=== PATIENT | male | born 1955 | race Two or more races ===

== ENCOUNTER 2017-02-01 20:36 | Emergency (ER) | payer BC ==
[~2017-02-01] VITALS: Ht 172.7 cm; Wt 79.4 kg
[2017-02-01 21:00] VITALS: BP 107/69
[2017-02-01 21:48] LABS: BASOPHILS % (AUTO) 1.1 % (0.0-2.0); EOSINOPHILS % (AUTO) 1.8 % (0.0-3.0); LYMPHOCYTES % (AUTO) 40.4 % (20.0-45.0); MEAN CORPUSCULAR HEMOGLOBIN 32.4 PG (27.0-31.0); MEAN CORPUSCULAR HGB CONC 34.8 G/DL (32.0-36.0); MEAN CORPUSCULAR VOLUME 93 FL (80-99); MEAN PLATELET VOLUME 9.2 FL (6.5-10.1); MONOCYTES % (AUTO) 7.6 % (1.0-10.0); PLATELET COUNT 184 K/UL (150-450); RED BLOOD COUNT 4.62 M/UL (4.70-6.10); RED CELL DISTRIBUTION WIDTH 11.2 % (11.6-14.8)
--- NOTE | 2017-02-01 21:54 | Emergency Room Report ---
History of Present Illness General Chief Complaint: Chest Pain Source: Patient Present Illness HPI 61YOM walk-in with episode of "shortness of breath" this morning. Was feeling anxious about work. Later this evening had some "discomfort" to upper left neck but notes has been "working out a lot at the gym." Non smoker, social ETOH. No drugs Took 2 ASA, felt better. Noted BP was 90/60 at time Came to ED Takes Losartan, took this morning No DM, HLD Father had heart attack at 68. Denies cough, fever/chills Feels well now Allergies: Coded Allergies: ACETAMINOPHEN (Verified Allergy, Unknown, 02/01/17) Pork (Verified Allergy, Unknown, 02/01/17) Patient History Past Medical History: HTN Past Surgical History: none Pertinent Family History: [place] Social History: Reports: alcohol use, Denies: drug use - s, smoking Immunizations: UTD Reviewed Nursing Documentation: PMH: Agreed, PSxH: Agreed Review of Systems All Other Systems: negative except mentioned in HPI Physical Exam Vital Signs Date Time Temp Pulse Resp B/P Pulse Ox O2 Delivery O2 Flow Rate FiO2 02/01/17 20:46 98.2 69 20 150/116 99 Room Air Sp02 EP Interpretation: reviewed, normal General Appearance: normal inspection, well appearing, no apparent distress, alert, GCS 15, non-toxic Head: normocephalic, atraumatic Eyes: bilateral eye EOMI, bilateral eye PERRL ENT: normal ENT inspection, hearing grossly normal, normal voice Neck: normal inspection, full range of motion, supple, no bony tend Respiratory: normal inspection, lungs clear, normal breath sounds, no respiratory distress, no retraction, no wheezing Cardiovascular #1: regular rate, rhythm, no edema Gastrointestinal: normal inspection, normal bowel sounds, non tender, soft, no guarding, no hernia Genitourinary: no CVA tenderness Musculoskeletal: normal inspection, back normal, normal range of motion, Manuela' s Sign negative Neurologic: normal inspection, alert, oriented x3, responsive, clinical advisor III-XII nml as tested, motor strength/tone normal, speech normal Psychiatric: normal inspection, judgement/insight normal, mood/affect normal Skin: normal inspection, normal color, no rash Lymphatic: normal inspection Medical Decision Making Diagnostic Impression: Primary Impression: Chest pain Qualified Codes: R07.89 - Other chest pain ER Course Neck pain/SOB - VSS. Afebrile - I disagree with shift mgr BP. - Currently 122/73 and has been stable without ED intervention - CXR: No PTX, CHF, PNA - ECG is NSR. No ischemia. - Labs: H&H stable. No leuk. Troponin 0. Advised PMD followup for HTN monitoring and Cardiology referral for outpatient stress testing DC home EKG Diagnostic Results Rate: normal Rhythm: NSR ST Segments: no acute changes ASA given to the pt in ED: No Rhythm Strip Diag. Results EP Interpretation: yes Rate: 68 Rhythm: NSR, other Chest X-Ray Diagnostic Results Chest X-Ray Diagnostic Results : Chest X-Ray Ordered: Yes # of Views/Limited/Complete: 1 View Indication: Chest Pain EP Interpretation: Yes Interpretation: no consolidation Impression: No acute disease Interpreting ER Provider: Electronically signed by Dr Murguia Last Vital Signs Date Time Temp Pulse Resp B/P Pulse Ox O2 Delivery O2 Flow Rate FiO2 02/01/17 20:46 98.2 69 20 150/116 99 Room Air Status: improved Disposition: HOME, SELF-CARE ANDIE HOWELL M.D. Feb 01, 2017 21:54
[2017-02-01 22:26] LABS: TROPONIN I < 0.30 ng/mL (<=0.30)
[2017-02-01 22:30] LABS: ALANINE AMINOTRANSFERASE 26 U/L (3-41); ALBUMIN/GLOBULIN RATIO 1.6 (1.0-2.7); ANION GAP 13 (5-15); ASPARTATE AMINO TRANSFERASE 34 U/L (5-40); CALCIUM 9.6 mg/dL (8.6-10.2); CARBON DIOXIDE 25 mEQ/L (20-30); CHLORIDE 103 mEQ/L (98-107); GLOMERULAR FILTRATION RATE > 60 mL/min (>60); HEMOLYSIS 6; SODIUM 141 mEQ/L (135-145); TOTAL PROTEIN 7.1 g/dL (6.6-8.7)
[2017-02-01 22:44] VITALS: BP 109/66
--- NOTE | 2017-02-04 08:04 | Diagnostic Imaging Report ---
Indication: SOB Technique: One view of the chest Comparison: none Findings: Lungs and pleural spaces are clear. Heart size is normal. Azygos lobe and fissure-normal anatomic variant-incidentally noted Impression: No acute process
--- NOTE | 2017-02-04 18:17 | Cardiology Report ---
APPROVED REPORT EKG Measurement Heart [id number] 160P56 [id number] Normal sinus rhythm with sinus arrhythmia Normal ECG
== END 2017-02-01 22:44 | disposition home or self-care (01) ==
LOC: EMR 21:17
DX: R07.89 Other chest pain (principal); M54.2 Cervicalgia; Z88.6 Allergy status to analgesic agent; I10 Essential (primary) hypertension; Z91.018 Allergy to other foods; Q33.1 Accessory lobe of lung
CPT/HCPCS: 36415; 71010; 80053; 82550; 82553; 83880; 84484; 85025; 93005; 99283

== ENCOUNTER 2019-01-25 07:29 | Emergency (ER) | payer BC ==
[~2019-01-25] VITALS: Ht 170.2 cm; Wt 82.6 kg
--- NOTE | 2019-01-25 07:34 | Emergency Room Report ---
History of Present Illness General Chief Complaint: To Be Triaged Present Illness HPI 63-year-old male history of hypertension, family history of [place] dad age 65 presents with chest pain tightness started at 5:30 AM, aggravated with exertion , alleviated with rest, no nausea no vomiting, he does endorse some shortness of breath, he did have jaw pain the day before and was cleared by his dentist. Patient denies any diaphoresis, no history of drug use, he does drink intermittently Allergies: Coded Allergies: ACETAMINOPHEN (Verified Allergy, Unknown, 02/01/17) Pork (Verified Allergy, Unknown, 02/01/17) Patient History Past Medical History: see triage record Social History: Reports: alcohol use Reviewed Nursing Documentation: PMH: Agreed; PSxH: Agreed Review of Systems Constitutional: Denies: chills, fever Eye: Denies: blurred vision, double vision ENT: Denies: throat pain, nasal discharge Respiratory: Reports: shortness of breath; Denies: cough Cardiovascular: Reports: chest pain, palpitations Gastrointestinal: Denies: abdominal pain, diarrhea, nausea, vomiting Genitourinary: Denies: dysuria, pain Musculoskeletal: Denies: back pain, muscle pain Skin: Denies: rash, lesions Neurological: Denies: headache, focal weakness Hematologic/Lymphatic: Denies: easy bleeding, easy bruising All Other Systems: negative except mentioned in HPI Physical Exam Sp02 EP Interpretation: reviewed, normal General Appearance: well appearing, no apparent distress, alert Head: normocephalic, atraumatic Eyes: bilateral eye PERRL, bilateral eye EOMI ENT: uvula midline, moist mucus membranes Neck: supple, thyroid normal, supple/symm/no masses Respiratory: lungs clear, no respiratory distress, no retraction, no accessory muscle use Cardiovascular #1: normal peripheral pulses, regular rate, rhythm, no edema, no gallop, no murmur Gastrointestinal: non tender, soft, no guarding, no rebound Musculoskeletal: normal inspection Neurologic: alert, oriented x3 Psychiatric: mood/affect normal Skin: no rash, warm/dry Medical Decision Making Diagnostic Impression: Primary Impression: Chest pain ER Course 63-year-old male presents with chest pain, concerning for ACS DDX: ACS, pulmonary embolism, pneumothorax, pneumonia. Given aspirin and nitroglycerin, with relief of pain The patient has requested to leave the ED against medical advice. The patient reason(s) for leaving include, but are not limited to, the following: works as a freelancer needs the money. I believe this patient is of sound mind and competent to refuse medical care. The patient is responding and asking questions appropriately. The patient is oriented to person, place and time. The patient is not psychotic, delusional, suicidal, homicidal or hallucinating. The patient demonstrates a normal mental capacity to make decisions regarding their healthcare. The patient is clinically sober and does not appear to be under the influence of any illicit drugs at this time. The patient has been advised of the risks, in layman terms, of leaving AMA which include, but are not limited to , coma, permanent disability, loss of current lifestyle, delay in diagnosis. Alternatives have been offered - the patient remains steadfast in their wish to leave. The patient has been advised that should they change their mind they are welcome to return to this hospital, or any other, at any time. The patient understands that in no way does an AMA discharge mean that I do not want them to have the best medical care available. To this end, I have provided appropriate prescriptions, referrals, and discharge instructions. The patient did sign AMA paperwork. The above discussion was witnessed by another member of staff. 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, he is aware of the risks of disability and worsening of his medical condition Patient is currently chest pain-free will provide a prescription for aspirin, patient signed AMA paperwork Laboratory Tests Test 01/25/19 07:50 White Blood Count 7.6 K/UL (4.8-10.8) Red Blood Count 4.78 M/UL (4.70-6.10) Hemoglobin 14.9 G/DL (14.2-18.0) Hematocrit 43.7 % (42.0-52.0) Mean Corpuscular Volume 91 FL (80-99) Mean Corpuscular Hemoglobin 31.1 PG (27.0-31.0) H Mean Corpuscular Hemoglobin Concent 34.0 G/DL (32.0-36.0) Red Cell Distribution Width 11.5 % (11.6-14.8) L Platelet Count 192 K/UL (150-450) Mean Platelet Volume 8.3 FL (6.5-10.1) Neutrophils (%) (Auto) 61.1 % (45.0-75.0) Lymphocytes (%) (Auto) 29.5 % (20.0-45.0) Monocytes (%) (Auto) 7.1 % (1.0-10.0) Eosinophils (%) (Auto) 1.5 % (0.0-3.0) Basophils (%) (Auto) 1.0 % (0.0-2.0) Prothrombin Time 9.6 SEC (9.30-11.50) Prothrombin Time INR 0.9 (0.9-1.1) PTT 27 SEC (23-33) Sodium Level 139 MMOL/L (136-145) Potassium Level 4.3 MMOL/L (3.5-5.1) Chloride Level 106 MMOL/L (98-107) Carbon Dioxide Level 27 MMOL/L (21-32) Anion Gap 6 mmol/L (5-15) Blood Urea Nitrogen 15 mg/dL (7-18) Creatinine 1.2 MG/DL (0.55-1.30) Estimate Glomerular Filtration Rate > 60 mL/min (>60) Glucose Level 124 MG/DL (74-106) H Calcium Level 9.3 MG/DL (8.5-10.1) Total Bilirubin 0.5 MG/DL (0.2-1.0) Aspartate Amino Transferase (AST) 28 U/L (15-37) Alanine Aminotransferase (ALT) 28 U/L (12-78) Alkaline Phosphatase 78 U/L (46-116) Total Creatine Kinase 77 U/L (26-308) Creatine Kinase MB 1.3 NG/ML (0.0-3.6) Creatine Kinase MB Relative Index 1.6 Troponin I 0.000 ng/mL (0.000-0.056) Total Protein 6.7 G/DL (6.4-8.2) Albumin 3.6 G/DL (3.4-5.0) Globulin 3.1 g/dL Albumin/Globulin Ratio 1.2 (1.0-2.7) Lipase 177 U/L (73-393) EKG Diagnostic Results EKG Time: 07:34 EP Interpretation: NSR, rate 74, QTc 419, no acute ST elevations, normal axis Rate: normal Rhythm: NSR ST Segments: no acute changes ASA given to the pt in ED: Yes Rhythm Strip Diag. Results Rhythm Strip Time: 07:43 EP Interpretation: yes Rate: 75 Rhythm: NSR, no PVC's, no ectopy Chest X-Ray Diagnostic Results Chest X-Ray Diagnostic Results : Chest X-Ray Ordered: Yes # of Views/Limited/Complete: 1 View Indication: Chest Pain EP Interpretation: Yes Interpretation: no consolidation, no effusion, no pneumothorax, no acute cardiopulmonary disease Impression: No acute disease Electronically Signed by: Yves Ramírez MD Disposition: AGAINST MEDICAL ADVICE Condition: Stable Scripts Aspirin* (ASPIR 81*) 81 Mg Tablet. 81 MG ORAL DAILY, #30 TAB Prov: Yves Ramírez M.D. 01/25/19 Referrals: [facility] Patient Instructions: Acute Coronary Syndrome, Nonspecific Chest Pain, Easy-to- Read Additional Instructions: The patient was provided with discharge instructions, notified to follow-up with a primary care doctor and or specialist in the next 24-48 hours, and to return to the ED if they have worsening of their symptoms. Please note that this report is being documented using Brain[employer] technology. This can lead to erroneous entry secondary to incorrect interpretation by the dictating instrument. Yves Ramírez M.D. Jan 25, 2019 07:34
[2019-01-25 07:38] VITALS: BP 157/84
[2019-01-25] MEDS ORDERED: LOSARTAN POTASS25 MG ORAL (07:38)
--- NOTE | 2019-01-25 07:38 | NUR ---
ED Nurse Note: Patient walked in to ER from home due to chest pain 02/14 which started by 0530 this morning. Patient aao x4 and ambulatory. skin clean and intact. calm and cooperative. pt is in gown and on monitor worker. no s/s of acute distress noted at this time.
--- NOTE | 2019-01-25 07:40 | NUR ---
ED Nurse Note: chest x-ray at bedside.
[2019-01-25 07:55] LABS: EOSINOPHILS % (AUTO) 1.5 % (0.0-3.0); HEMATOCRIT 43.7 % (42.0-52.0); HEMOGLOBIN 14.9 G/DL (14.2-18.0); LYMPHOCYTES % (AUTO) 29.5 % (20.0-45.0); MEAN CORPUSCULAR VOLUME 91 FL (80-99); MONOCYTES % (AUTO) 7.1 % (1.0-10.0); NEUTROPHILS % (AUTO) 61.1 % (45.0-75.0); PLATELET COUNT 192 K/UL (150-450); RED BLOOD COUNT 4.78 M/UL (4.70-6.10); RED CELL DISTRIBUTION WIDTH 11.5 % (11.6-14.8); WHITE BLOOD COUNT 7.6 K/UL (4.8-10.8)
[2019-01-25] MEDS ORDERED: Nitroglycerin 2% oint pkt TOPIC ONE (08:00)
--- NOTE | 2019-01-25 08:01 | NUR ---
ED Nurse Note: pt was informed that he will be hospitalized and refused x3. pt aao x4. ERMD made aware. CAROLD at bedside speaking to pt and the .
[2019-01-25 08:09] LABS: INR 0.9 (0.9-1.1)
[2019-01-25 08:16] LABS: ANION GAP 6 mmol/L (5-15); BLOOD UREA NITROGEN 15 mg/dL (7-18); CALCIUM 9.3 MG/DL (8.5-10.1); CARBON DIOXIDE 27 MMOL/L (21-32); CHLORIDE 106 MMOL/L (98-107); CREATININE 1.2 MG/DL (0.55-1.30); POTASSIUM 4.3 MMOL/L (3.5-5.1); SODIUM 139 MMOL/L (136-145)
[2019-01-25 08:30] LABS: ALANINE AMINOTRANSFERASE 28 U/L (12-78); ALBUMIN 3.6 G/DL (3.4-5.0); ALBUMIN/GLOBULIN RATIO 1.2 (1.0-2.7); ALKALINE PHOSPHATASE 78 U/L (46-116); ASPARTATE AMINO TRANSFERASE 28 U/L (15-37); BILIRUBIN,TOTAL 0.5 MG/DL (0.2-1.0); CKMB 1.3 NG/ML (0.0-3.6); CREATINE KINASE 77 U/L (26-308)
[2019-01-25] MEDS ORDERED: ASPIR 8181 MG ORAL (08:39)
--- NOTE | 2019-01-25 08:42 | NUR ---
ED Nurse Note: ERMD at bedside speaking to pt about exam results and AMA.
[2019-01-25 08:47] VITALS: BP 137/79
--- NOTE | 2019-01-25 08:49 | NUR ---
AMA: pt was advised to stay in the hospital for the further test but pt refused x3 as stating "I have so many things to do. I cannot stay." Pt spoke to ERMD and still insisted to go home and agreed with it. pt and agreed with signing on AMA form with fully understanding. pt provided dc paper and prescription. pt ambulated out with steady gait and took all belongings. IV and id band removed.
--- NOTE | 2019-01-25 10:54 | Diagnostic Imaging Report ---
Indication: Chest pain Comparison: 02/01/2017 A single view chest radiograph was obtained. Findings: Cardiomediastinal appearance is within normal limits for age. The lungs are clear. Azygous lobe noted. Pulmonary vascularity is appropriate. The diaphragmatic contour is smooth and costophrenic angles are sharp. No pleural effusions are identified. The bones are unremarkable. Impression: No acute findings
--- NOTE | 2019-01-26 21:05 | Cardiology Report ---
APPROVED REPORT EKG Measurement Heart [id number] [id number] Normal sinus rhythm Normal ECG
== END 2019-01-25 08:47 | disposition left against medical advice (07) ==
LOC: EMR 07:44 → CANBEDREQ 08:41 → EMR 08:47
DX: R07.9 Chest pain, unspecified (principal); R68.84 Jaw pain; Z88.6 Allergy status to analgesic agent; Z91.018 Allergy to other foods
CPT/HCPCS: 36415; 71045; 80053; 82550; 82553; 83690; 84484; 85025; 85610; 85730; 93005; 99284

== ENCOUNTER 2019-09-14 23:17 | Emergency (ER) | payer BC ==
[~2019-09-14] VITALS: Ht 170.2 cm; Wt 77.1 kg
[~2019-09-14 23:17] MED LIST: ASPIR 8181 MG ORAL; LOSARTAN POTASS25 MG ORAL
--- NOTE | 2019-09-15 | NUR ---
ED Nurse Note: patient ambulated into ed c/o fever x 2230. temp at home 101.4 f oral. current temp 99.1f oral. denies chest pain sob or recent travels. ao4 nad vss. accompanied by family member. changed into gown; attached to monitor; safety measures met.
[2019-09-15 00:28] VITALS: BP 116/66
[2019-09-15] MEDS ORDERED: Morphine Sulfate 4mg/ml Inj (IV USE ONLY) IVP ONE (00:45)
--- NOTE | 2019-09-15 00:54 | Emergency Room Report ---
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 He finished radiation and is currently on chemotherapy. Last chemotherapy was a week ago. He presents with chief complaint of fever. He took his temperature twice and is 100.4 at home. He has no symptoms. He did not feel hot. No chills. He does have oral pain to his tongue. He has an ulceration to his lateral aspect of tongue on the left side. He also has this redness and swelling to the left parotid gland has been there for 3 weeks. He did not take any medicine for his fever. Because of his history of cancer the advice nurse told him to go to the hospital. Patient denies any cough or congestion. Denies any urinary complaint. Allergies: Coded Allergies: ACETAMINOPHEN (Verified Allergy, Unknown, 02/01/17) Pork (Verified Allergy, Unknown, 02/01/17) Patient History Past Medical History: see triage record, old chart reviewed Past Surgical History: other Pertinent Family History: none Social History: Denies: smoking Immunizations: other Reviewed Nursing Documentation: PMH: Agreed; PSxH: Agreed Nursing Documentation-PMH Hx Gastrointestinal Problems: Yes - GERD Review of Systems Constitutional: Reports: fever Eye: Denies: eye pain, blurred vision ENT: Denies: ear pain, nose congestion, throat swelling Respiratory: Denies: cough, shortness of breath Cardiovascular: Denies: chest pain, palpitations Gastrointestinal: Denies: abdominal pain, diarrhea, nausea, vomiting Musculoskeletal: Denies: back pain, joint pain Skin: Denies: rash Neurological: Denies: headache, numbness Endocrine: Denies: increased thirst, increased urine Hematologic/Lymphatic: Denies: easy bruising All Other Systems: negative except mentioned in HPI Physical Exam Vital Signs Date Time Temp Pulse Resp B/P (MAP) Pulse Ox O2 Delivery O2 Flow Rate FiO2 09/14/19 23:30 99.5 99 16 116/66 (83) 96 Room Air Vitals unremarkable Sp02 EP Interpretation: reviewed, normal General Appearance: well appearing, no apparent distress, alert Head: normocephalic, atraumatic Eyes: bilateral eye PERRL, bilateral eye EOMI ENT: hearing grossly normal, normal pharynx, other - Ulceration on the left lateral tongue. Thrush Neck: full range of motion, supple, no meningismus, other - Left lateral neck with mass and erythema. Respiratory: chest non-tender, lungs clear, normal breath sounds Cardiovascular #1: regular rate, rhythm, no murmur Gastrointestinal: normal bowel sounds, non tender, no mass, no organomegaly, no bruit, non-distended Musculoskeletal: back normal, normal range of motion, gait/station normal Psychiatric: mood/affect normal Procedures Critical Care Time Critical Care Time Critical care is mandated in this patient who presented with neutropenic fever. Patient require my urgent intervention to attenuate the risks of metabolic collapse which may lead to cardiovascular collapse and . Critical care time is 35 minutes excluding any reportable procedure. Critical care time included evaluation, multiple reevaluation, looking at old charts, interpreting laboratory and diagnostic data, discussing case with patient and family and consultants, and charting. Medical Decision Making Diagnostic Impression: Primary Impression: Neutropenic fever Additional Impressions: Oral thrush Thrombocytopenia Anemia Qualified Codes: D64.9 - Anemia, unspecified ER Course Patient presents with fever at home. His WBC showed that he has been pending fever. ANC is at most 500. Last chemotherapy was 7 days ago. He has no other new symptoms. He does have oral thrush. He has transfusion and platelet transfusion in the past. Because of his cancer history and he is being taken care of by Dr. Mike Zaragoza [facility], I will try to transfer him there. I discussed the case with Dr. Zaragoza. . He accepted the patient for transfer to [facility]. Rhythm Strip Diag. Results EP Interpretation: yes Rate: 77 Rhythm: NSR, no PVC's, no ectopy Chest X-Ray Diagnostic Results Chest X-Ray Diagnostic Results : Chest X-Ray Ordered: Yes # of Views/Limited/Complete: 1 View Indication: Other EP Interpretation: Yes Interpretation: no consolidation, no effusion, no pneumothorax, no acute cardiopulmonary disease Impression: No acute disease Electronically Signed by: Ernesto Olivera MD Last Vital Signs Date Time Temp Pulse Resp B/P (MAP) Pulse Ox O2 Delivery O2 Flow Rate FiO2 09/15/19 00:28 99 16 Room Air 09/15/19 00:28 99.5 116/66 96 Status: improved Disposition: XFER SHT-TRM HOSP Condition: Stable Referrals: NON PHYSICIAN (PCP) Ernesto Olivera MD Sep 15, 2019 00:54
--- NOTE | 2019-09-15 01:00 | NUR ---
ED Nurse Note: IV ACCESS ESTABLISHED. BLOOD COLLECTED; SENT DOWN TO LAB. UNABLE TO COLLECT URINE AT THIS TIME; PT STATES HE WILL PROVIDE WHEN ABLE
[2019-09-15 01:50] LABS: ANION GAP 8 mmol/L (5-15); BLOOD UREA NITROGEN 30 mg/dL (7-18); CALCIUM 8.9 MG/DL (8.5-10.1); CARBON DIOXIDE 28 MMOL/L (21-32); CHLORIDE 97 MMOL/L (98-107); CREATININE 0.9 MG/DL (0.55-1.30); POTASSIUM 3.6 MMOL/L (3.5-5.1); SODIUM 133 MMOL/L (136-145)
--- NOTE | 2019-09-15 01:50 | NUR ---
ED Nurse Note: urine collected; sent down to lab.
[2019-09-15 01:55] LABS: ALANINE AMINOTRANSFERASE 41 U/L (12-78); ALBUMIN 3.2 G/DL (3.4-5.0); ALBUMIN/GLOBULIN RATIO 0.9 (1.0-2.7); ALKALINE PHOSPHATASE 66 U/L (46-116); ASPARTATE AMINO TRANSFERASE 20 U/L (15-37); BILIRUBIN,TOTAL 0.4 MG/DL (0.2-1.0)
[2019-09-15 02:12] LABS: APPEARANCE,URINE CLEAR; BILIRUBIN, URINE NEGATIVE (NEGATIVE); COLOR,URINE YELLOW; GLUCOSE, URINE (UA) NEGATIVE (NEGATIVE); KETONES,URINE NEGATIVE (NEGATIVE); LEUKOCYTE ESTERASE ,URINE NEGATIVE (NEGATIVE); NITRITE,URINE NEGATIVE (NEGATIVE); PH,URINE 6 (4.5-8.0); PROTEIN,URINE NEGATIVE (NEGATIVE); UROBILINOGEN,URINE NORMAL MG/DL (0.0-1.0)
[2019-09-15 02:15] LABS: HEMATOCRIT 22.3 % (42.0-52.0); HEMOGLOBIN 7.9 G/DL (14.2-18.0); MEAN CORPUSCULAR VOLUME 89 FL (80-99); PLATELET COUNT 14 K/UL (150-450); RED BLOOD COUNT 2.51 M/UL (4.70-6.10); RED CELL DISTRIBUTION WIDTH 13.3 % (11.6-14.8)
[2019-09-15 02:19] LABS: WHITE BLOOD COUNT 0.5 K/UL (4.8-10.8)
[2019-09-15 02:48] VITALS: BP 108/64
--- NOTE | 2019-09-15 03:00 | NUR ---
ED Nurse Note: PATIENT RESTING IN BED WITH NO ACUTE DISTRESS. AO4. VSS. FAMILY AT BEDSIDE.
[2019-09-15] MEDS ORDERED: Cefepime HCl 1 GM in D5W 55 ML IVPB ONE (03:15)
[2019-09-15] MEDS ORDERED: Vancomycin 1.5 GM in NS 275 ML IVPB ONE (03:15)
--- NOTE | 2019-09-15 04:00 | NUR ---
ED Nurse Note: PATIENT AWARE OF PENDING TRANSFER FOR HLOC TO [facility].
[2019-09-15 05:41] VITALS: BP 98/53
--- NOTE | 2019-09-15 06:10 | NUR ---
ED Nurse Note: TRANSFER INFORMATION GIVEN BY [facility]. PER [facility], TRANSPORT AFTER 0730. ESTABLISHED TRANSPORTATION WITH [employer] ETA 0800
--- NOTE | 2019-09-15 07:10 | NUR ---
HAND-OFF: Report given to delroy Byrnes. patient in stable condition. endorsed pending transfer to [facility] [place]; patient aware of transfer.
--- NOTE | 2019-09-15 07:16 | NUR ---
ED Nurse Note: Report received from Jeffry Hope RN. Pt in lying comfortably in bed with no signs of distress. Respirations even and unlabored on room air. Vitals stable as documented. Pt awaiting transfer to [facility].
--- NOTE | 2019-09-15 07:50 | NUR ---
ED Nurse Note: Report given to TAMERA Plasencia @ [facility]
[2019-09-15 08:00] VITALS: BP 95/54
--- NOTE | 2019-09-15 09:01 | NUR ---
ED Nurse Note: Pt's blood pressure 88/48. Pt asymptomatic. ED MD ordered 1 L NS bolus. Bolus started and after 15 minutes, bp recheck is 93/55.
--- NOTE | 2019-09-15 10:28 | NUR ---
ED Nurse Note: [employer] @ bedside. Report given.
[2019-09-15 10:35] VITALS: BP 98/59
--- NOTE | 2019-09-15 10:35 | NUR ---
ED Nurse Note: Pt in stable condition, respirations even and unlabored on room air. Vitals stable. Pt being discharged with IV. Ambulance personnel given report. Pt discharged safely via gurney en route to [facility].
== END 2019-09-15 10:35 | disposition short-term general hospital (02) ==
LOC: EMR 09-15 00:23
DX: D70.9 Neutropenia, unspecified (principal); R50.81 Fever presenting with conditions classified elsewhere; B37.0 Candidal stomatitis; D64.9 Anemia, unspecified; D69.6 Thrombocytopenia, unspecified; K21.9 Gastro-esophageal reflux disease without esophagitis; Z88.6 Allergy status to analgesic agent
CPT/HCPCS: 36415; 71045; 80053; 81003; 83605; 85025; 86710; 87040; 87181; 96361; 96365; 96366; 96368; 96375; 99291; J0692; J2270; J2405; J3370; J7030; J7050